=== PATIENT | female | born 2000 | race Two or more races ===

== ENCOUNTER 2023-12-27 18:42 | Emergency (ER) | payer MEDICAID, OTHER ==
[~2023-12-27] VITALS: Ht 152.4 cm; Wt 38.3 kg
[2023-12-27 18:56] VITALS: BP 152/71; PULSE 85; RESP 18; TEMP 99.1; O2SAT 96
[2023-12-27] MEDS: KETOROLAC TROMETH 60MG/2ML VIAL IM ONE (20:08)
== END 2023-12-27 21:59 | disposition home or self-care (01) ==
LOC: ER 18:46
DX: S13.4XXA Sprain of ligaments of cervical spine, initial encounter (principal); S16.1XXA Strain of muscle, fascia and tendon at neck level, initial encounter; V89.2XXA Person injured in unspecified motor-vehicle accident, traffic, initial encounter; Y93.I9 Activity, other involving external motion; Y92.89 Other specified places as the place of occurrence of the external cause; Y99.8 Other external cause status
CPT/HCPCS: 72040; 96372; 99283; J1885